=== PATIENT | male | born 1940 | race Caucasian/White ===

== ENCOUNTER → 2016-09-03 | Outpatient (CLI) | payer OTHER, MEDICARE ==
[~2016-09-03] MED LIST: ASCA500 PO; ASPI81TA28 PO; BUME1TAB PO; CEFA500C2 PO; CITA20TA9 PO; FRS/40 PO; LCTX PO; LEVE250T PO; MAGN400T6 PO; MELATAB2 PO; MIRT15TA2 PO; POLY335019 PO; POTA20TA16 PO; SENN-61 PO; TAMS0.4C38 PO; ZINC1CAP PO; [UNRECOGNIZED DRUG - MIXTURE]
[2016-09-03 17:00] LABS: BLOOD UREA NITROGEN 17 mg/dl (7-18); BUN/CREATININE RATIO 18.8 (10-20); CALCIUM 8.5 mg/dl (8.5-10.1); CARBON DIOXIDE 31 mmol/L (21-32); CHLORIDE 96 mmol/L (98-107); GLUCOSE 103 mg/dl (70-99); POTASSIUM 4.3 mmol/L (3.5-5.1); SODIUM 134 mmol/L (136-145)
== END | disposition home or self-care (01) ==
LOC: C.LABBC 13:52
PROVIDERS: ATTEND Anesthesiology
DX: Z13.89 Encounter for screening for other disorder (principal)

== ENCOUNTER → 2016-12-29 | Outpatient (CLI) | payer OTHER, MEDICARE ==
[~2016-12-29] MED LIST changes: -BUME1TAB PO; -LCTX PO; +METO25TA56 PO; +METO5TAB25 PO; -ZINC1CAP PO
--- NOTE | 2016-12-29 12:57 | DIAGNOSTIC IMAGING REPORT ---
RIGHT ELBOW 3 VIEWS CLINICAL HISTORY: Fall with right arm pain. FINDINGS: 3 views of the right elbow are obtained. No prior studies are available for comparison at the time of dictation. The skeletal structures are osteopenic. No fracture is seen. There is no elbow joint effusion. Enthesophyte formation is seen at the triceps insertion. There is degenerative spurring from the radial head. Mild dorsal soft tissue swelling is suggested. IMPRESSION: 1. Mild dorsal soft soft tissue swelling with no radiographic evidence of right elbow fracture. 2. Osteopenia and degenerative change as above. Electronically signed by: Andrey Peters M.D. 12/29/2016 12:56 PM Dictated Date/Time: 12/29/2016 12:55 PM
--- NOTE | 2016-12-29 12:59 | DIAGNOSTIC IMAGING REPORT ---
RIGHT SHOULDER 4 VIEWS CLINICAL HISTORY: Fall with right arm pain. FINDINGS: 4 views of the right shoulder are obtained. No prior studies are available for comparison at the time of dictation. The skeletal structures are osteopenic. No fracture or dislocation is identified. Mild productive degenerative change is seen at the acromioclavicular joint. The glenohumeral articulation is preserved. The overlying soft tissues are within normal limits. A right internal jugular central venous infusion port is noted. The visualized right upper lobe lung parenchyma appears clear. IMPRESSION: 1. No right shoulder fracture or dislocation is identified. 2. Osteopenia and degenerative change as above. Electronically signed by: Andrey Peters M.D. 12/29/2016 12:57 PM Dictated Date/Time: 12/29/2016 12:56 PM
--- NOTE | 2016-12-29 13:00 | DIAGNOSTIC IMAGING REPORT ---
RIGHT HUMERUS 2 VIEWS HISTORY: Right arm pain. FALL, ASSESS FOR CATHETER FRACTURE COMPARISON: None. FINDINGS: There is no fracture or dislocation. Soft tissues are unremarkable. The bones are osteopenic. IMPRESSION: No fracture or dislocation within the right shoulder. Electronically signed by: Satya Arteaga M.D. 12/29/2016 12:58 PM Dictated Date/Time: 12/29/2016 12:56 PM
--- NOTE | 2016-12-29 13:08 | DIAGNOSTIC IMAGING REPORT ---
LUMBAR SPINE 5 VIEWS HISTORY: Low back pain. FALL, ASSESS FOR CATHETER FRACTURE COMPARISON: Lumbar spine 12/21/2015. FINDINGS: There is no fracture. No subluxation. Intrathecal catheter tip terminates at approximately T10-11 disc space level. This remains unchanged. The visualized portions of the catheter appears to be grossly intact. There is a tortuous appearance to the intrathecal catheter within the soft tissues of the back at the L2-L3 level which results in suboptimal evaluation for catheter continuity. However, this is unchanged and likely intact. Posterior decompression fusion from L3 through S1 with pedicle screws and rods. The hardware appears intact. The intrathecal catheter enters at the L2 level. IMPRESSION: 1. No fracture or subluxation within the lumbar spine. 2. No change in appearance of the intrathecal catheter which appears to be intact. This terminates at the T10-11 disc space level. Electronically signed by: Satya Arteaga M.D. 12/29/2016 1:07 PM Dictated Date/Time: 12/29/2016 1:02 PM
--- NOTE | 2016-12-29 13:09 | DIAGNOSTIC IMAGING REPORT ---
R FOREARM 2 VIEWS ROUTINE CLINICAL HISTORY: Right arm pain status post trauma COMPARISON: None. DISCUSSION: The study is limited from a positioning standpoint. No fractures are visualized the provided 2 projections. There is a small olecranon spur. There is a corticated ossicle adjacent to the radial head. IMPRESSION: Technically limited study. No acute fractures identified. Electronically signed by: Santiago Langston M.D. 12/29/2016 1:08 PM Dictated Date/Time: 12/29/2016 1:07 PM
== END | disposition home or self-care (01) ==
LOC: C.RADBC 11:17
PROVIDERS: ATTEND Anesthesiology
DX: M79.601 Pain in right arm (principal); W19.XXXA Unspecified fall, initial encounter